=== PATIENT | male | born 1950 | race Caucasian/White ===

== ENCOUNTER 2025-04-15 12:20 | Emergency (ER) | payer MEDICARE, OTHER ==
[~2025-04-15] VITALS: Ht 167.6 cm; Wt 88.9 kg
[2025-04-15 13:12] LABS: PLATELET COUNT (AUTO) 188 K/uL (150-450); RED BLOOD CELL COUNT(AUTO) 4.89 MIL/uL (4.5-6.0); RED CELL DISTRIBUTION WIDTH 13.2 % (11.5-15.0); WHITE BLOOD COUNT (AUTO) 16.7 K/uL (4.3-11.0)
[2025-04-15 13:35] LABS: ASPARTATE AMINOTRANSFERASE 19 U/L (15-37); CALCIUM, SERUM 8.7 mg/dL (8.5-10.1); CREATININE 1.0 mg/dL (0.6-1.3); NT-PRO BNP 164 pg/mL (0-125); SODIUM SERUM 132 mmol/L (136-145); TOTAL PROTEIN, SERUM 6.5 g/dL (6.4-8.2); UREA NITROGEN, BLOOD 27 mg/dL (7-18)
[2025-04-15] MEDS ORDERED: POTASSIUM CHLORIDE 20 MEQ POWDER PACKET ONE (14:14)
[2025-04-15] MEDS: POTASSIUM CHLORIDE 20 MEQ POWDER PACKET PO ONE (14:17)
[2025-04-15] MEDS: IV NS 0.9% 1,000 ML BAG IV ONE (14:17)
[2025-04-15] MEDS ORDERED: DOXY100C2 PO (15:23)
[2025-04-15] MEDS ORDERED: AMOX-430 PO (15:23)
[2025-04-15 15:52] VITALS: BP 112/69; TEMP 99.5; O2SAT 98
[2025-04-15] MEDS ORDERED: CETI10TA14 PO (21:38)
[2025-04-15] MEDS ORDERED: LOSA1TAB39 PO (21:38)
[2025-04-15] MEDS ORDERED: NIFE-35 PO (21:38)
[2025-04-15] MEDS ORDERED: RIVA10TA PO (21:38)
[2025-04-15] MEDS ORDERED: CYAN500L PO (21:38)
[2025-04-15] MEDS ORDERED: DAPA5TAB PO (21:38)
[2025-04-15] MEDS ORDERED: ZOLP10TA2 PO (21:38)
== END 2025-04-15 15:53 | disposition left against medical advice (07) ==
LOC: ER 12:24
DX: L03.116 Cellulitis of left lower limb (principal); R65.10 Systemic inflammatory response syndrome (SIRS) of non-infectious origin without acute organ dysfunction; E86.0 Dehydration; E87.1 Hypo-osmolality and hyponatremia; E87.6 Hypokalemia; F17.200 Nicotine dependence, unspecified, uncomplicated; I11.9 Hypertensive heart disease without heart failure; I82.502 Chronic embolism and thrombosis of unspecified deep veins of left lower extremity; Z20.822 Contact with and (suspected) exposure to COVID-19
CPT/HCPCS: 99285; 96360; 71045; 87426; 93005; 85025; 80048; 80076; 36415; 84484; 83880; J7030

== ENCOUNTER 2025-04-15 19:52 | Inpatient (IN) | payer MEDICARE, OTHER ==
[~2025-04-15] VITALS: Ht 172.7 cm; Wt 89.8 kg
[~2025-04-15 19:52] MED LIST: AMOX-430 PO; DOXY100C2 PO
[2025-04-15] MEDS ORDERED: PIPERACI/TAZO 3.375GM/D5W 50ML PB IV ONE (20:02)
[2025-04-15] MEDS: PIPERACILLIN /TAZOBACTAM 3.375 G in IV D5W 50 ML IV ONE (20:05)
[2025-04-15] MEDS: IV NS 0.9% 1,000 ML BAG IV ONE (20:07)
[2025-04-15] MEDS ORDERED: VANCOMYCIN 1 GM /D5W 250 ML PB IV ONE (20:08)
[2025-04-15 20:15] LABS: PLATELET COUNT (AUTO) 204 K/uL (150-450); RED BLOOD CELL COUNT(AUTO) 5.27 MIL/uL (4.5-6.0); RED CELL DISTRIBUTION WIDTH 13.4 % (11.5-15.0); WHITE BLOOD COUNT (AUTO) 15.4 K/uL (4.3-11.0)
[2025-04-15 20:20] LABS: CALCIUM, SERUM 8.9 mg/dL (8.5-10.1); CREATININE 1.2 mg/dL (0.6-1.3); SODIUM SERUM 137.0 mmol/L (136-145); UREA NITROGEN, BLOOD 27.0 mg/dL (7-18)
[2025-04-15 20:25] LABS: ASPARTATE AMINOTRANSFERASE 22.0 U/L (15-37); TOTAL PROTEIN, SERUM 7.2 g/dL (6.4-8.2)
[2025-04-15 20:26] LABS: INR 1.56 (0.91-1.10)
[2025-04-15 20:29] LABS: LACTIC ACID 2.0 mmol/L (0.4-2.0)
[2025-04-15] MEDS: VANCOMYCIN 1 GM in IV D5W 250 ML IV ONE (20:32)
[2025-04-15 20:47] LABS: APPEARANCE,URINE SLIGHTLY CLOUDY (CLEAR); BLOOD, URINE 2+ Ery/uL (NEGATIVE); LEUKOCYTE ESTERASE ,URINE 1+ (NEGATIVE); NITRITE, URINE NEGATIVE (NEGATIVE); UGLUCOSE 3+ mg/dL (NEGATIVE)
[2025-04-15 21:30] LABS: ADD URINE CULTURE YES
[2025-04-15] MEDS ORDERED: HYDROCODONE/APAP 10/325MG TABLET PO PRN (21:30)
[2025-04-15] MEDS ORDERED: DOSING PER PHARMACY-VANCOMYCIN IV XX PRN (21:30)
[2025-04-15] MEDS ORDERED: MAGNESIUM HYDROXIDE 30 ML UDC PO PRN (21:30)
[2025-04-15] MEDS ORDERED: ONDANSETRON HCL/PF 4 MG/2 ML VIAL IVP PRN (21:30)
[2025-04-15] MEDS ORDERED: Z GUARD REMEDY 4 OZ OINT TP PRN (21:30)
[2025-04-15] MEDS ORDERED: MAG HYDROX/AL HYDROX/SIMETH 30 ML UDC PO PRN (21:30)
[2025-04-15] MEDS ORDERED: TEMAZEPAM 15 MG CAPSULE PO PRN (21:30)
[2025-04-15] MEDS ORDERED: HYDROCODONE/APAP 5/325MG TABLET PO PRN (21:30)
[2025-04-15] MEDS ORDERED: NIFE-35 PO (21:38)
[2025-04-15] MEDS ORDERED: CYAN500L PO (21:38)
[2025-04-15] MEDS ORDERED: DAPA5TAB PO (21:38)
[2025-04-15] MEDS ORDERED: ZOLP10TA2 PO (21:38)
[2025-04-15] MEDS ORDERED: RIVA10TA PO (21:38)
[2025-04-15] MEDS ORDERED: CETI10TA14 PO (21:38)
[2025-04-15] MEDS ORDERED: LOSA1TAB39 PO (21:38)
[2025-04-15] MEDS ORDERED: ACETAMINOPHEN 325 MG TABLET ONE (21:39)
[2025-04-15] MEDS: ACETAMINOPHEN 325 MG TABLET PO PRN (21:41)
[2025-04-15] MEDS ORDERED: DEXTROSE 50%-WATER 50 ML DISP.SYRIN IV PRN (22:00)
[2025-04-15] MEDS: IV NS 0.9% 1,000 ML IV SCH (22:23)
[2025-04-15] MEDS: ENOXAPARIN SODIUM 40 MG/0.4 ML DISP.SYRIN SQ SCH (22:42)
[2025-04-15] MEDS: POTASSIUM CHLORIDE 20 MEQ TAB.PRT.SR PO ONE (22:42)
[2025-04-15] MEDS: BLOOD SUGAR DIAGNOSTIC 1 EACH STRIP IN SCH (23:14)
[2025-04-15] MEDS: INSULIN REGULAR, HUMAN 100 UNIT/ML 3 ML VIAL SQ PRN (23:15)
[2025-04-16] VITALS (8 sets, daily range): BP systolic 97–128; BP diastolic 56–71; TEMP 97.8–100.9; O2SAT 92–97
[2025-04-16] MEDS: PIPERACI/TAZO 3.375GM/D5W 50ML PB IV ONE (01:24)
[2025-04-16] MEDS: ZOSYN IVPB 3.375 G in IV D5W 50ml IV ONE (01:46)
[2025-04-16] MEDS ORDERED: PIPERACILLIN /TAZOBACTAM 3.375 G in IV D5W 50 ML IV SCH (02:00)
[2025-04-16 07:02] LABS: PLATELET COUNT (AUTO) 163 K/uL (150-450); RED BLOOD CELL COUNT(AUTO) 4.67 MIL/uL (4.5-6.0); RED CELL DISTRIBUTION WIDTH 13.5 % (11.5-15.0); WHITE BLOOD COUNT (AUTO) 14.2 K/uL (4.3-11.0)
[2025-04-16 07:28] LABS: LDL 47.0 mg/dL (0-99)
[2025-04-16 07:30] LABS: CALCIUM, SERUM 8.0 mg/dL (8.5-10.1); CREATININE 1.0 mg/dL (0.6-1.3); SODIUM SERUM 137.0 mmol/L (136-145); UREA NITROGEN, BLOOD 23.0 mg/dL (7-18)
[2025-04-16] MEDS: PANTOPRAZOLE 40 MG TABLET.DR PO SCH (07:52)
[2025-04-16] MEDS: PIPERACILLIN /TAZOBACTAM 3.375 G in IV D5W 50 ML IV SCH (08:00)
[2025-04-16] MEDS: VANCOMYCIN 750 MG in IV D5W 250 ML IV SCH (08:50)
[2025-04-16] MEDS: NIFEdipine XL (30MG) 30 MG TAB PO SCH (09:00)
[2025-04-16] MEDS: LOSARTAN/HCTZ 50-12.5MG/ 1 EA TABLET PO SCH (09:00)
[2025-04-16] MEDS: DAPAGLIFLOZIN PROPANEDIOL 5 MG TABLET PO SCH (09:02)
[2025-04-16] MEDS: CYANOCOBALAMIN 500 MCG TABLET PO SCH (09:02)
[2025-04-16] MEDS: NICOTINE PATCH (7MG) 7 MG PATCH.TD24 TD SCH (09:02)
[2025-04-16] MEDS: cetrizine 10 MG TABLET PO SCH (09:02)
[2025-04-16] MEDS: RIVAROXABAN 10 MG TABLET PO SCH (09:08)
[2025-04-16] MEDS: POTASSIUM CHLORIDE 20 MEQ TAB.PRT.SR PO ONE (11:09)
[2025-04-17] VITALS: BP 127/68; TEMP 98.2; O2SAT 93
[2025-04-17 04:00] VITALS: BP 127/64; TEMP 100; O2SAT 94
[2025-04-17 06:46] LABS: PLATELET COUNT (AUTO) 165 K/uL (150-450); RED BLOOD CELL COUNT(AUTO) 4.64 MIL/uL (4.5-6.0); RED CELL DISTRIBUTION WIDTH 13.5 % (11.5-15.0); WHITE BLOOD COUNT (AUTO) 12.8 K/uL (4.3-11.0)
[2025-04-17 07:12] LABS: CALCIUM, SERUM 8.5 mg/dL (8.5-10.1); CREATININE 1.0 mg/dL (0.6-1.3); SODIUM SERUM 136.0 mmol/L (136-145); UREA NITROGEN, BLOOD 22.0 mg/dL (7-18)
[2025-04-17 07:47] LABS: PHOSPHORUS 2.6 mg/dL (2.5-4.9)
[2025-04-17 08:00] VITALS: BP 103/61; TEMP 98.4; O2SAT 94
[2025-04-17] MEDS: POTASSIUM CHLORIDE 20 MEQ TAB.PRT.SR PO SCH (11:35)
[2025-04-17 20:00] VITALS: BP 114/57; TEMP 98.6; O2SAT 94
[2025-04-18 07:05] LABS: PLATELET COUNT (AUTO) 189 K/uL (150-450); RED BLOOD CELL COUNT(AUTO) 4.60 MIL/uL (4.5-6.0); RED CELL DISTRIBUTION WIDTH 13.4 % (11.5-15.0); WHITE BLOOD COUNT (AUTO) 8.6 K/uL (4.3-11.0)
[2025-04-18 07:19] LABS: CALCIUM, SERUM 8.5 mg/dL (8.5-10.1); CREATININE 0.9 mg/dL (0.6-1.3); SODIUM SERUM 136.0 mmol/L (136-145); UREA NITROGEN, BLOOD 17.0 mg/dL (7-18)
[2025-04-18 07:37] LABS: PHOSPHORUS 2.8 mg/dL (2.5-4.9)
[2025-04-18] MEDS ORDERED: IV NS 0.9% 1,000 ML IV PRN (07:50)
[2025-04-18 08:00] VITALS: BP 120/70; TEMP 98.4; O2SAT 92
[2025-04-18 08:40] VITALS: O2SAT 95
[2025-04-18] MEDS: POTASSIUM CHLORIDE 20 MEQ TAB.PRT.SR PO SCH (12:29)
[2025-04-18 16:01] VITALS: BP 112/68; TEMP 98.2; O2SAT 94
[2025-04-18 20:00] VITALS: BP 104/59; TEMP 97.9; O2SAT 94
[2025-04-18] MEDS: VANCOMYCIN 1 GM in IV D5W 250ml IV SCH (20:02)
[2025-04-19 07:16] LABS: PLATELET COUNT (AUTO) 234 K/uL (150-450); RED BLOOD CELL COUNT(AUTO) 4.73 MIL/uL (4.5-6.0); RED CELL DISTRIBUTION WIDTH 13.3 % (11.5-15.0); WHITE BLOOD COUNT (AUTO) 7.4 K/uL (4.3-11.0)
[2025-04-19 08:00] VITALS: BP 103/53; TEMP 98.1; O2SAT 94; O2SAT 95
[2025-04-19 08:08] LABS: CALCIUM, SERUM 8.9 mg/dL (8.5-10.1); CREATININE 0.9 mg/dL (0.6-1.3); PHOSPHORUS 4.1 mg/dL (2.5-4.9); SODIUM SERUM 139.0 mmol/L (136-145); UREA NITROGEN, BLOOD 23.0 mg/dL (7-18)
[2025-04-19] MEDS: ALBUTEROL FS 2.5 MG/0.5 ML VIAL.NEB NEB ONE (09:04)
[2025-04-19] MEDS: IPRATROPIUM NEB FS 0.5 MG/2.5 ML AMPUL.NEB NEB ONE (09:04)
[2025-04-19 09:05] VITALS: O2SAT 97
[2025-04-19 09:08] VITALS: O2SAT 98
[2025-04-19] MEDS: POTASSIUM CHLORIDE 20 MEQ TAB.PRT.SR PO SCH (11:16)
[2025-04-19 12:00] VITALS: BP 99/58; TEMP 97.9; O2SAT 97
[2025-04-19 16:00] VITALS: BP 115/62; TEMP 98.2; O2SAT 95
== END 2025-04-19 18:00 | disposition home health service (06) | DRG 872 ==
LOC: ER 19:53 → TELE 21:12 → MED 04-17 10:25
PROVIDERS: ADMIT Registered Nurse Psychiatric/Mental Health
DX: A40.8 Other streptococcal sepsis (principal); L03.116 Cellulitis of left lower limb; N39.0 Urinary tract infection, site not specified; E87.6 Hypokalemia; E11.65 Type 2 diabetes mellitus with hyperglycemia; Z86.718 Personal history of other venous thrombosis and embolism; E66.9 Obesity, unspecified; I11.0 Hypertensive heart disease with heart failure; E11.40 Type 2 diabetes mellitus with diabetic neuropathy, unspecified; I50.9 Heart failure, unspecified; I89.0 Lymphedema, not elsewhere classified; Z71.6 Tobacco abuse counseling; R65.20 Severe sepsis without septic shock; Z68.30 Body mass index [BMI] 30.0-30.9, adult; N50.89 Other specified disorders of the male genital organs; R94.31 Abnormal electrocardiogram [ECG] [EKG]; B96.89 Other specified bacterial agents as the cause of diseases classified elsewhere; Z87.891 Personal history of nicotine dependence
CPT/HCPCS: 36415; 71045-TC; 73590-TC; 73610-TC; 73630-TC; 73700-TC; 76870-TC; 80048-TC; 80061-TC; 80076-TC; 80202-TC; 81001; 82962-TC; 83605-TC; 83735-TC; 84100-TC; 85025-TC; 85730-TC; 87040-TC; 87086-TC; 93307-TC; 93926-TC; 93971-TC; 94799-TC; 97110-TC; 97116-TC; 97530-TC; A4223; A6253; G0378; J1650; J1815; J2543; J3373; J3374; J7030; J7040; J7060